=== PATIENT | female | born 1930 | race African-American/Black ===

== ENCOUNTER 2018-02-25 20:47 | Inpatient (IN) | payer OTHER ==
[~2018-02-25] VITALS: Ht 165.1 cm; Wt 49.9 kg
[2018-02-25 20:50] VITALS: BP 122/67
[2018-02-25] MEDS ORDERED: NACL 0.9% 500 ML IV ONE ×2 (20:55→21:05)
[2018-02-25] MEDS ORDERED: DOPamine 400 MG/D5W PREMIX 250 ML IV ONE (21:05)
[2018-02-25] MEDS ORDERED: PIPERACILLIN/TAZOBACTAM 3.375 GM in DEXTROSE 5% 50 ML IV ONE (21:30)
[2018-02-25] MEDS ORDERED: DOCU-299 PO (21:37)
[2018-02-25] MEDS ORDERED: AMLO10TA PO (21:37)
[2018-02-25] MEDS ORDERED: PANT40EC PO (21:37)
[2018-02-25] MEDS ORDERED: MAGN400S PO (21:37)
[2018-02-25] MEDS ORDERED: HYDR100T79 PO (21:37)
[2018-02-25] MEDS ORDERED: CLON-527 TD (21:37)
[2018-02-25] MEDS ORDERED: BISA-213 RC (21:37)
[2018-02-25] MEDS ORDERED: FERR-15 PO (21:37)
[2018-02-25 21:38] VITALS: BP 86/49
[2018-02-25] MEDS ORDERED: ACETAMINOPHEN 650 MG SUPP RC ONE (21:50)
[2018-02-25] MEDS ORDERED: PIPERACILLIN/TAZOBACTAM 3.375 GM VIAL IV ONE (21:51)
[2018-02-25 21:52] LABS: HEMATOCRIT 32.1 % (36-48); HEMOGLOBIN 9.6 g/dL (12.0-16.0); MEAN CORPUSCULAR HEMOGLOBIN 23 pg (27-31); MEAN CORPUSCULAR HGB CONC 30 g/dL (33-37); MEAN CORPUSCULAR VOLUME 77.5 fL (80-94); PLATELET COUNT (AUTO) 313 K/uL (140-450); RED BLOOD CELL COUNT(AUTO) 4.14 MIL/uL (4.20-5.40); RED CELL DISTRIBUTION WIDTH 18.4 % (11.6-13.7); WHITE BLOOD COUNT (AUTO) 18.5 K/uL (4.8-10.8)
[2018-02-25 22:05] LABS: ALBUMIN 1.2 g/dL (3.4-5.0); ANION GAP 15.2 (8-16); ASPARTATE AMINOTRANSFERASE 20 U/L (15-37); CARBON DIOXIDE 22.9 mmol/L (21-32); CHLORIDE 133 mmol/L (98-107); CREATININE 2.8 mg/dL (0.6-1.3); GLUCOSE 190 mg/dL (74-106); POTASSIUM 4.1 mmol/L (3.5-5.1); PROTHROMBIN TIME 12.3 secs (10.8-13.4); TOTAL BILIRUBIN 0.3 mg/dL (0.0-1.0)
[2018-02-25 22:08] LABS: APPEARANCE,URINE TURBID (CLEAR)
[2018-02-25 22:09] LABS: BILIRUBIN,URINE NEGATIVE (NEGATIVE); BLOOD, URINE 3+ (NEGATIVE); COLOR,URINE YELLOW (YELLOW); LEUKOCYTE ESTERASE ,URINE 4+ (NEGATIVE); NITRITE, URINE NEGATIVE (NEGATIVE); UGLUCOSE NEGATIVE (NEGATIVE)
[2018-02-25 22:11] LABS: RBC,URINE 3-10 (FEW) /HPF (0-5); WBC,URINE TOO MANY TO COUNT /HPF (0-5)
[2018-02-25] MEDS ORDERED: LEVOFLOXACIN 500 MG/D5W PREMIX 100 ML IV ONE (22:15)
[2018-02-25 22:19] LABS: BASOPHILS % (MANUAL) 0 % (0-2); EOSINOPHILS % (MANUAL) 1 % (0-4); LYMPHOCYTES % (MANUAL) 3 % (20-46); MONOCYTES % (MANUAL) 4 % (5-12)
[2018-02-25 22:21] LABS: SODIUM SERUM 167 mmol/L (136-145)
[2018-02-25 22:22] LABS: UREA NITROGEN, BLOOD 86 mg/dL (7-18)
[2018-02-25] MEDS ORDERED: NACL 0.9% 1,000 ML IV ONE (22:25)
[2018-02-25] MEDS ORDERED: ENOXAPARIN 30 MG/0.3 ML SYR SUBQ ONE (22:30)
[2018-02-25] MEDS ORDERED: MORPHINE SULFATE 2 MG/ML SYR IVP PRN (22:40)
[2018-02-25] MEDS ORDERED: DOCUSATE SODIUM 100 MG GELCAP PO PRN (22:40)
[2018-02-25] MEDS ORDERED: ACETAMINOPHEN 325 MG TAB PO PRN (22:40)
[2018-02-25] MEDS ORDERED: ONDANSETRON 4 MG/2 ML VIAL IM/IVP PRN (22:40)
[2018-02-25] MEDS ORDERED: HYDROcodone/APAP 5/325 MG 1 TAB TAB PO PRN (22:40)
[2018-02-25 23:11] LABS: MAGNESIUM 2.5 mg/dL (1.8-2.4); PHOSPHORUS 5.4 mg/dL (2.5-4.9); THYROID STIMULATING HORMONE 3.27 uIU/mL (0.34-3.74)
[2018-02-25] MEDS ORDERED: MORPHINE SULFATE 2 MG/ML SYR IVP ONE (23:45)
[2018-02-25] MEDS ORDERED: ALBUTEROL SULFATE/IPRATROPIU 3 ML SOL IH PRN (23:50)
[2018-02-26] VITALS (24 sets, daily range): BP systolic 85–135; BP diastolic 36–84
[2018-02-26] MEDS ORDERED: PIPERACILLIN/TAZOBACTAM 2.25 GM VIAL IV ONE (00:24)
[2018-02-26] MEDS ORDERED: PNEUMOCOCCAL VACCINE 23 MCG/0.5 ML VIAL IMVAC SCH (01:30)
[2018-02-26] MEDS ORDERED: INFLUENZA VIRUS VACCINE QUAD 0.5 ML SYR IMVAC PRN (01:30)
[2018-02-26] MEDS ORDERED: HEPARIN PER PHARMACY MC PRN (01:30)
[2018-02-26] MEDS ORDERED: DEXT 5% / NACL 0.45% 1,000 ML IV ONE (01:30)
[2018-02-26] MEDS ORDERED: ACETAMINOPHEN 650 MG SUPP RC PRN (01:45)
[2018-02-26] MEDS ORDERED: hePARIN / DEXT 5% PREMIX 250 ML IV SCH ×2 (01:55→07:30)
[2018-02-26] MEDS ORDERED: PANTOPRAZOLE 40 MG INJ VIAL IVP SCH ×2 (02:00→09:00)
[2018-02-26] MEDS ORDERED: DEXTROSE 50% 50 ML SYR IVP PRN (02:00)
[2018-02-26] MEDS ORDERED: LOVENOX 1MG/KG Q12H SUBQ SCH (05:50)
[2018-02-26 06:18] LABS: BASOPHILS % (AUTO) 0.1 % (0.0-2.0); HEMATOCRIT 30.8 % (36-48); HEMOGLOBIN 8.9 g/dL (12.0-16.0); LYMPHOCYTES # (AUTO) 0.9 K/uL (2.5-16.5); MEAN CORPUSCULAR HEMOGLOBIN 23 pg (27-31); MEAN CORPUSCULAR HGB CONC 29 g/dL (33-37); MEAN CORPUSCULAR VOLUME 80.8 fL (80-94); MONOCYTES # (AUTO) 0.5 K/uL (0.8-1.0); MONOCYTES % (AUTO) 3.7 % (1.7-9.3); NEUTROPHILS % (AUTO) 90.2 % (42.2-75.2); PLATELET COUNT (AUTO) 243 K/uL (140-450); RED BLOOD CELL COUNT(AUTO) 3.82 MIL/uL (4.20-5.40); RED CELL DISTRIBUTION WIDTH 18.7 % (11.6-13.7); WHITE BLOOD COUNT (AUTO) 14.4 K/uL (4.8-10.8)
[2018-02-26] MEDS: PIPER/TAZO 2.25GM/D5W PREMIX 50 ML IV SCH ×4 (06:31→23:49)
[2018-02-26] MEDS: ALBUTEROL SULFATE/IPRATROPIU 3 ML SOL IH SCH ×3 (06:33→19:16)
[2018-02-26 06:49] LABS: CHOL/HDL RATIO 5.4 (1-4.5)
[2018-02-26 07:24] LABS: ANION GAP 14.6 (8-16); CARBON DIOXIDE 22.8 mmol/L (21-32); CHLORIDE 133 mmol/L (98-107); CREATININE 3.2 mg/dL (0.6-1.3); GLUCOSE 203 mg/dL (74-106); POTASSIUM 4.4 mmol/L (3.5-5.1)
[2018-02-26 07:28] LABS: SODIUM SERUM 166 mmol/L (136-145); UREA NITROGEN, BLOOD 90 mg/dL (7-18)
[2018-02-26] MEDS: BLOOD GLUCOSE MONITORING 1 DEV DEV FS SCH ×4 (07:35→21:20)
[2018-02-26] MEDS ORDERED: ASPIRIN 81 MG TAB.CHEW PO SCH (09:00)
[2018-02-26] MEDS ORDERED: MAGNESIUM HYDROXIDE 2400 MG/30 ML UDC PO PRN (09:00)
[2018-02-26] MEDS ORDERED: HEPARIN PER PHARMACY MC SCH (09:00)
[2018-02-26] MEDS ORDERED: SODIUM FERRIC GLUCONATE 125 MG in NACL 0.9% 100 ML IV ONE (09:00)
[2018-02-26] MEDS: PANTOPRAZOLE 40 MG INJ VIAL IVP SCH (09:31)
[2018-02-26] MEDS: DOCUSATE SODIUM 100 MG GELCAP PO SCH (09:31)
[2018-02-26] MEDS: FERROUS SULFATE 325 MG TABEC PO SCH (09:31)
[2018-02-26] MEDS: NACL 0.9% 1,000 ML IV SCH ×2 (09:45→19:04)
[2018-02-26] MEDS: MORPHINE SULFATE 2 MG/ML SYR IVP PRN (10:32)
[2018-02-26] MEDS ORDERED: ATORVASTATIN 20 MG TAB PO SCH (12:00)
[2018-02-26] MEDS ORDERED: METOPROLOL 25 MG TAB PO SCH (12:00)
[2018-02-26] MEDS: INSULIN LISPRO SLIDING SCALE 100 UNITS/ML VIAL SUBQ PRN ×2 (12:43→17:01)
[2018-02-26 13:22] LABS: MAGNESIUM 2.1 mg/dL (1.8-2.4)
[2018-02-26] MEDS ORDERED: FUROSEMIDE 40 MG/4 ML VIAL IVP SCH (15:00)
[2018-02-26 18:46] LABS: CHLORIDE 129 mmol/L (98-107); GLUCOSE 227 mg/dL (74-106)
[2018-02-26 19:25] LABS: SODIUM SERUM 162 mmol/L (136-145); UREA NITROGEN, BLOOD 98 mg/dL (7-18)
[2018-02-26 19:26] LABS: CREATININE 4.1 mg/dL (0.6-1.3)
[2018-02-26] MEDS: SODIUM CHLORIDE FLUSH 10 ML SYR IVF SCH (21:20)
[2018-02-26] MEDS: METOPROLOL 25 MG TAB PO SCH (21:20)
[2018-02-27] VITALS (20 sets, daily range): BP systolic 82–138; BP diastolic 43–67
[2018-02-27 00:34] LABS: ANION GAP 17.6 (8-16); CARBON DIOXIDE 23.5 mmol/L (21-32); CHLORIDE 128 mmol/L (98-107); GLUCOSE 123 mg/dL (74-106); POTASSIUM 4.1 mmol/L (3.5-5.1)
[2018-02-27 00:38] LABS: CREATININE 4.2 mg/dL (0.6-1.3); SODIUM SERUM 165 mmol/L (136-145); UREA NITROGEN, BLOOD 99 mg/dL (7-18)
[2018-02-27] MEDS: SODIUM CHLORIDE FLUSH 10 ML SYR IVF SCH ×3 (05:10→20:41)
[2018-02-27] MEDS: PIPER/TAZO 2.25GM/D5W PREMIX 50 ML IV SCH ×4 (06:05→23:58)
[2018-02-27] MEDS: BLOOD GLUCOSE MONITORING 1 DEV DEV FS SCH ×4 (06:34→20:41)
[2018-02-27 06:43] LABS: ANION GAP 18.2 (8-16); CHLORIDE 128 mmol/L (98-107); GLUCOSE 129 mg/dL (74-106); POTASSIUM 4.2 mmol/L (3.5-5.1)
[2018-02-27] MEDS: ALBUTEROL SULFATE/IPRATROPIU 3 ML SOL IH SCH ×3 (06:52→18:59)
[2018-02-27 06:53] LABS: MAGNESIUM 2.1 mg/dL (1.8-2.4); PHOSPHORUS 4.6 mg/dL (2.5-4.9)
[2018-02-27 07:06] LABS: HEMOGLOBIN 7.7 g/dL (12.0-16.0); MEAN CORPUSCULAR HEMOGLOBIN 23 pg (27-31); MEAN CORPUSCULAR HGB CONC 30 g/dL (33-37); MEAN CORPUSCULAR VOLUME 77.7 fL (80-94); PLATELET COUNT (AUTO) 186 K/uL (140-450); RED BLOOD CELL COUNT(AUTO) 3.35 MIL/uL (4.20-5.40); RED CELL DISTRIBUTION WIDTH 18.8 % (11.6-13.7); WHITE BLOOD COUNT (AUTO) 21.4 K/uL (4.8-10.8)
[2018-02-27 07:15] LABS: LYMPHOCYTES % (MANUAL) 3 % (20-46); MONOCYTES % (MANUAL) 2 % (5-12)
[2018-02-27 07:16] LABS: SODIUM SERUM 164 mmol/L (136-145)
[2018-02-27 07:17] LABS: CREATININE 4.2 mg/dL (0.6-1.3); UREA NITROGEN, BLOOD 104 mg/dL (7-18)
[2018-02-27 08:27] LABS: FOLIC ACID 5.3 ng/mL (>3.0)
[2018-02-27] MEDS: MORPHINE SULFATE 2 MG/ML SYR IVP PRN ×2 (08:38→12:39)
[2018-02-27] MEDS ORDERED: DILTIAZEM 25 MG/5 ML VIAL IVP SCH (08:53)
[2018-02-27] MEDS ORDERED: ATORVASTATIN 20 MG TAB PO SCH (09:00)
[2018-02-27] MEDS ORDERED: MORPHINE SULFATE 2 MG/ML SYR IVP PRN (09:00)
[2018-02-27] MEDS: METOPROLOL 25 MG TAB PO SCH ×2 (09:00→20:42)
[2018-02-27] MEDS ORDERED: LORazepam 2 MG/ML VIAL IVP PRN (09:00)
[2018-02-27] MEDS: PANTOPRAZOLE 40 MG INJ VIAL IVP SCH (09:15)
[2018-02-27] MEDS: FERROUS SULFATE 325 MG TABEC PO SCH (09:16)
[2018-02-27] MEDS: DOCUSATE SODIUM 100 MG GELCAP PO SCH (09:16)
[2018-02-27 14:40] LABS: CARBON DIOXIDE 20.7 mmol/L (21-32); CHLORIDE 129 mmol/L (98-107); POTASSIUM 4.5 mmol/L (3.5-5.1)
[2018-02-27 14:41] LABS: GLUCOSE 121 mg/dL (74-106)
[2018-02-27 14:42] LABS: ANION GAP 19.8 (8-16); CREATININE 4.7 mg/dL (0.6-1.3); SODIUM SERUM 165 mmol/L (136-145); UREA NITROGEN, BLOOD 106 mg/dL (7-18)
[2018-02-27] MEDS ORDERED: HYDRAGUARD CREAM TP PRN (15:00)
[2018-02-27] MEDS: DEXT 5% / NACL 0.45% 1,000 ML IV SCH (16:10)
[2018-02-27] MEDS: ALBUMIN HUMAN 25% 100 ML IV SCH (17:41)
[2018-02-27] MEDS: INSULIN LISPRO SLIDING SCALE 100 UNITS/ML VIAL SUBQ PRN (20:44)
[2018-02-28] VITALS (9 sets, daily range): BP systolic 107–146; BP diastolic 50–64
[2018-02-28] MEDS: HYDRAGUARD CREAM TP SCH ×2 (01:22→15:34)
[2018-02-28] MEDS: ALBUMIN HUMAN 25% 100 ML IV SCH ×2 (01:37→06:19)
[2018-02-28] MEDS: SODIUM CHLORIDE FLUSH 10 ML SYR IVF SCH ×2 (04:36→15:34)
[2018-02-28] MEDS: PIPER/TAZO 2.25GM/D5W PREMIX 50 ML IV SCH ×3 (05:25→18:00)
[2018-02-28 05:53] LABS: ANION GAP 19.5 (8-16); CARBON DIOXIDE 22.6 mmol/L (21-32); CHLORIDE 124 mmol/L (98-107); GLUCOSE 207 mg/dL (74-106); POTASSIUM 4.1 mmol/L (3.5-5.1)
[2018-02-28 05:57] LABS: MAGNESIUM 2.1 mg/dL (1.8-2.4); PHOSPHORUS 4.5 mg/dL (2.5-4.9)
[2018-02-28 06:04] LABS: SODIUM SERUM 162 mmol/L (136-145)
[2018-02-28 06:05] LABS: CREATININE 4.7 mg/dL (0.6-1.3); UREA NITROGEN, BLOOD 111 mg/dL (7-18)
[2018-02-28] MEDS: INSULIN LISPRO SLIDING SCALE 100 UNITS/ML VIAL SUBQ PRN (06:51)
[2018-02-28] MEDS: BLOOD GLUCOSE MONITORING 1 DEV DEV FS SCH ×3 (06:51→17:22)
[2018-02-28 06:54] LABS: HEMATOCRIT 22.1 % (36-48); MEAN CORPUSCULAR HEMOGLOBIN 23 pg (27-31); MEAN CORPUSCULAR HGB CONC 29 g/dL (33-37); MEAN CORPUSCULAR VOLUME 78.3 fL (80-94); PLATELET COUNT (AUTO) 164 K/uL (140-450); RED BLOOD CELL COUNT(AUTO) 2.82 MIL/uL (4.20-5.40); RED CELL DISTRIBUTION WIDTH 18.7 % (11.6-13.7); WHITE BLOOD COUNT (AUTO) 21.2 K/uL (4.8-10.8)
[2018-02-28 07:07] LABS: HEMOGLOBIN 6.5 g/dL (12.0-16.0)
[2018-02-28 07:35] LABS: LYMPHOCYTES % (MANUAL) 7 % (20-46); MONOCYTES % (MANUAL) 6 % (5-12)
[2018-02-28] MEDS: ALBUTEROL SULFATE/IPRATROPIU 3 ML SOL IH SCH ×2 (08:20→13:59)
[2018-02-28] MEDS: DEXT 5% / NACL 0.45% 1,000 ML IV SCH (08:50)
[2018-02-28 10:20] LABS: PROTHROMBIN TIME 14.1 secs (10.8-13.4)
[2018-02-28] MEDS: PANTOPRAZOLE 40 MG INJ VIAL IVP SCH (10:57)
[2018-02-28] MEDS: METOPROLOL 25 MG TAB PO SCH (10:57)
[2018-02-28] MEDS: FERROUS SULFATE 325 MG TABEC PO SCH (10:58)
[2018-02-28] MEDS: DOCUSATE SODIUM 100 MG GELCAP PO SCH (10:58)
[2018-02-28] MEDS ORDERED: ASCORBIC ACID 500 MG/5 ML ORASYR GT SCH (13:00)
[2018-02-28] MEDS ORDERED: FLUCONAZOLE 200 MG/NS PREMIX 100 ML IV SCH (14:00)
[2018-02-28] MEDS: MORPHINE SULFATE 2 MG/ML SYR IVP PRN (15:33)
[2018-02-28] MEDS: ACETAMINOPHEN 325 MG TAB PO SCH ×2 (15:34→16:00)
[2018-02-28] MEDS ORDERED: FUROSEMIDE 20 MG TAB PO SCH (16:00)
[2018-02-28] MEDS ORDERED: HUMSLIDE SUBQ (16:22)
[2018-02-28] MEDS ORDERED: Hydraguard TP ×2 (16:22)
[2018-02-28] MEDS ORDERED: ONDA2SOL45 IM/IVP (16:22)
[2018-02-28] MEDS ORDERED: TYL650S RC (16:22)
[2018-02-28] MEDS ORDERED: ATI2I IVP (16:22)
[2018-02-28] MEDS ORDERED: MORP2SOL18 IVP ×2 (16:22)
[2018-02-28] MEDS ORDERED: ACET-9525 PO (16:22)
[2018-02-28] MEDS ORDERED: ASCO-672 GT (16:22)
[2018-02-28] MEDS ORDERED: PANT40PD7 IVP (16:22)
[2018-02-28] MEDS ORDERED: GLUC-805 FS (16:22)
[2018-02-28] MEDS ORDERED: ZOS2.25I IV (16:23)
[2018-02-28] MEDS ORDERED: Z-GUARD PASTE TP PRN (16:25)
[2018-03-01] MEDS ORDERED: Z-GUARD PASTE TP SCH (01:00)
[2018-03-01] MEDS ORDERED: ASCORBIC ACID 500 MG/5 ML ORASYR GT SCH (09:00)
[2018-03-01] MEDS ORDERED: FLUCONAZOLE 200 MG/NS PREMIX 100 ML IV SCH (14:00)
== END 2018-02-28 20:25 | disposition short-term general hospital (02) | DRG 871 ==
LOC: MED 20:47 → MIC 22:40 → MTU 02-28 07:05
PROVIDERS: ADMIT General Practice; ATTEND General Practice
PROC: 5A09357 Assistance with Respiratory Ventilation, Less than 24 Consecutive Hours, Continuous Positive Airway Pressure (ICD-10-PCS; 2018-02-25)
PROC: 5A09457 Assistance with Respiratory Ventilation, 24-96 Consecutive Hours, Continuous Positive Airway Pressure (ICD-10-PCS; 2018-02-26)
PROC: 02HV33Z Insertion of Infusion Device into Superior Vena Cava, Percutaneous Approach (ICD-10-PCS; 2018-02-26)
PROC: B548ZZA Ultrasonography of Superior Vena Cava, Guidance (ICD-10-PCS; 2018-02-26)
PROC: 30233N1 Transfusion of Nonautologous Red Blood Cells into Peripheral Vein, Percutaneous Approach (ICD-10-PCS; principal; 2018-02-28)
DX: A41.9 Sepsis, unspecified organism (principal); J69.0 Pneumonitis due to inhalation of food and vomit; J96.01 Acute respiratory failure with hypoxia; I50.43 Acute on chronic combined systolic (congestive) and diastolic (congestive) heart failure; N17.0 Acute kidney failure with tubular necrosis; E43 Unspecified severe protein-calorie malnutrition; R53.2 Functional quadriplegia; I21.4 Non-ST elevation (NSTEMI) myocardial infarction; Z68.1 Body mass index [BMI] 19.9 or less, adult; E87.0 Hyperosmolality and hypernatremia; N39.0 Urinary tract infection, site not specified; D68.9 Coagulation defect, unspecified; I13.0 Hypertensive heart and chronic kidney disease with heart failure and stage 1 through stage 4 chronic kidney disease, or unspecified chronic kidney disease; K92.2 Gastrointestinal hemorrhage, unspecified; R65.20 Severe sepsis without septic shock; E87.8 Other disorders of electrolyte and fluid balance, not elsewhere classified; R73.9 Hyperglycemia, unspecified; Z87.891 Personal history of nicotine dependence; E86.0 Dehydration; D50.9 Iron deficiency anemia, unspecified; E83.41 Hypermagnesemia; E83.39 Other disorders of phosphorus metabolism; R62.7 Adult failure to thrive; K21.9 Gastro-esophageal reflux disease without esophagitis; N18.9 Chronic kidney disease, unspecified; I25.10 Atherosclerotic heart disease of native coronary artery without angina pectoris; I73.9 Peripheral vascular disease, unspecified; I48.91 Unspecified atrial fibrillation; E78.1 Pure hyperglyceridemia; Z66 Do not resuscitate; R73.03 Prediabetes; I35.0 Nonrheumatic aortic (valve) stenosis; I07.1 Rheumatic tricuspid insufficiency; I27.21 Secondary pulmonary arterial hypertension; D63.1 Anemia in chronic kidney disease; Z88.8 Allergy status to other drugs, medicaments and biological substances; Z79.899 Other long term (current) drug therapy; Z86.718 Personal history of other venous thrombosis and embolism; Z82.3 Family history of stroke; Z83.3 Family history of diabetes mellitus; Z82.5 Family history of asthma and other chronic lower respiratory diseases; Z87.11 Personal history of peptic ulcer disease; Z71.3 Dietary counseling and surveillance
CPT/HCPCS: 36415; 36600; 70450; 71045; 80048; 80053; 81001; 82607; 82728; 82746; 82803; 82948; 83036; 83540; 83605; 83690; 83735; 83880; 84100; 84443; 84484; 85025; 85045; 85610; 85730; 86886; 86900; 86901; 86920; 87040; 87070; 87081; 87086; 87186; 87205; 87804; 92526; 93005; 93925; 93970; 94640; 94660; 96365; 96367; 99285; C1751; C9113; J1642; J1644; J1650; J1815; J1940; J1956; J2060; J2270; J2543; J2916; J3490; J7030; J7620; P9016; P9046; Q0092; Q0163